=== PATIENT | female | born 1975 | race Caucasian/White ===

== ENCOUNTER 2016-05-19 08:52 | Emergency (ER) | payer OTHER ==
[~2016-05-19] VITALS: Ht 162.6 cm; Wt 68.2 kg
[2016-05-19 09:06] VITALS: Ht 162.6 cm; Wt 68.2 kg
[2016-05-19] MEDS ORDERED: ASPIRIN 325 MG TAB PO STA (09:16)
[2016-05-19] MEDS ORDERED: TAP5 PO (09:18)
[2016-05-19] MEDS ORDERED: FER325 PO (09:18)
[2016-05-19] MEDS ORDERED: NITROGLYCERIN (SL) 0.4 MG TAB SL PRN (09:30)
--- NOTE | 2016-05-19 09:46 | RADRPT ---
PROCEDURE: XR Chest. CLINICAL INDICATION: chest pain TECHNIQUE: Single frontal view of the chest was obtained COMPARISON: None FINDINGS: The heart and mediastinum are within normal limits. The lungs are clear. There is no pleural effusion or pneumothorax. RPTAT: AA IMPRESSION: No acute disease. .Gino Mcmanus MD, Date Time Electronically viewed and signed by .Gnio Mcmanus MD, on 05/19/2016 09:45 .S/
[2016-05-19 10:10] LABS: BASOPHILS % 0.7 % (0.0-2.0); EOSINOPHILS # 0.1 10^3/ul (0.0-0.5); EOSINOPHILS % 2.5 % (0.0-7.0); HEMATOCRIT 30.7 % (37.0-47.0); HEMOGLOBIN 9.6 g/dl (12.0-16.0); LYMPHOCYTES # 2.2 10^3/ul (0.8-2.9); LYMPHOCYTES % 37.5 % (15.0-51.0); MEAN CORPUSCULAR HEMOGLOBIN 21.1 pg (29.0-33.0); MEAN CORPUSCULAR HGB CONC 31.1 g/dl (32.0-37.0); MEAN PLATELET VOLUME 9.4 fl (7.4-10.4); MONOCYTE # 0.4 10^3/ul (0.3-0.9); NEUTROPHILS % 52.3 % (39.0-77.0); PLATELET COUNT 410 10^3/UL (140-440); RED BLOOD COUNT 4.52 10^6/ul (4.20-5.40); RED CELL DISTRIBUTION WIDTH 20.7 % (11.5-14.5); UNCORRECTED WBC 5.8 10^3/ul (4.8-10.8); WHITE BLOOD COUNT 5.8 10^3/ul (4.8-10.8)
[2016-05-19 10:13] LABS: INR 1.03; PROTIME 13.5 Sec (12.2-14.2); PT RATIO 1.1
[2016-05-19 10:14] LABS: PARTIAL THROMBOPLASTIN TIME 30.9 Sec (25.0-35.0)
[2016-05-19 10:21] LABS: CONDITION 1; LH ANALYZER COMMENTS 1
[2016-05-19] MEDS ORDERED: ASPIRIN 81 MG TAB PO ONE (10:30)
[2016-05-19 10:32] LABS: ALBUMIN 4.2 g/dl (3.3-4.9)
[2016-05-19 10:33] LABS: CHLORIDE 108 mmol/L (97-110); POTASSIUM 3.9 mmol/L (3.5-5.1); SODIUM 146 mmol/L (135-144)
[2016-05-19 10:35] LABS: ANION GAP 19 (8-16); ASPARTATE AMINO TRANSFERASE 23 IU/L (15-46); BILIRUBIN,INDIRECT 0.1 mg/dl (0-1.1); BILIRUBIN,TOTAL 0.1 mg/dl (0.2-1.3); CARBON DIOXIDE 23 mmol/L (21-31); CREATININE 0.48 mg/dl (0.44-1.00)
[2016-05-19 10:36] LABS: ALANINE AMINOTRANSFERASE 31 IU/L (13-69); ALBUMIN/GLOBULIN RATIO 1.23; ALKALINE PHOSPHATASE 80 IU/L (42-121); BLOOD UREA NITROGEN 10 mg/dl (7-20); CREATINE KINASE 60 IU/L (23-200); GLUCOSE 96 mg/dl (70-220); TOTAL PROTEIN 7.6 g/dl (6.1-8.1)
[2016-05-19 10:45] LABS: B-TYPE NATRIURETIC PEPTIDE 64 PG/ML (0-125); CK-MB 0.61 ng/ml (0.0-2.4)
[2016-05-19 10:50] LABS: TROPONIN-I < 0.012 ng/ml (0.00-0.12)
--- NOTE | 2016-05-19 11:13 | ERD ---
ER Documentation Chief Complaint Date/Time DATE: 05/19/16 TIME: 11:11 Chief Complaint CP since 05/18/2016, radiating to L arm HPI This is a 40-year-old female with no past medical history that presents to the emergency department complaining of a 3 day history of a productive cough low- grade fever and a bandlike headache. The patient indicates the cough and fever had improved over the past 24 hours however yesterday morning while at work she felt slightly lightheaded and dizzy and took her blood pressure. It was 85/60. She stated that she sat down and the dizziness had resolved. 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 She denies any shortness of breath at rest or exertion. She did state however that she was complaining of mild tenderness in her left calf but denied any back pain and no recent trauma to the left calf. She stated there is no swelling of her lower extremities. She did not take any antipyretics prior to arrival her analgesic medication. She states she has had a headache in the past roughly 1 month ago that was similar nature to this bandlike headache and states this is not the worst headache of her life and she also denies any neck pain. Yesterday after she left work around 3 PM, 21 hours prior to arrival, she stated she developed chest pain. She stated that chest pain was pleuritic and did radiate to her left shoulder but not to her left arm contrary to the triage note. She stated there was no associated symptoms of vomiting diaphoresis or nausea. The pain does radiate to her upper back. She states that the chest pain has become a dull achy chest discomfort and is exacerbated by movement of her left upper extremity and as stated above is worse when she coughs. She went to an urgent care clinic just prior to arrival and they immediately sent her to the emergency department to be further evaluated they had performed an EKG at the clinic that was a normal sinus rhythm. The patient has no history of coronary artery disease in her first-degree relatives. The patient does not smoke tobacco. The clinic had phoned 911 and EMS administered 162 mg of aspirin and 2 sprays of nitroglycerin which the patient stated did not improve her symptoms of chest discomfort ROS All systems reviewed and are negative except as per history of present illness. Medications Home Meds Reported Medications Ferrous Sulfate* (Ferrous Sulfate*) 325 Mg Tabec, 325 MG PO DAILY, TAB 05/19/16 Methimazole* (Methimazole*) 5 Mg Tablet, 5 MG PO DAILY, TAB 05/19/16 Allergies Allergies: Coded Allergies: Penicillins (Verified Allergy, Unknown, 05/19/16) PMhx/Soc History of Surgery: Yes (Broken nose repair ) Hx Miscellaneous Medical Probl: Yes (pt has hx of anemia, Thyroid ) Hx Alcohol Use: No Hx Substance Use: No Hx Tobacco Use: No Smoking Status: Never smoker Physical Exam Vitals Vital Signs Date Time Temp Pulse Resp B/P Pulse Ox O2 Delivery O2 Flow Rate FiO2 05/19/16 11:30 99.1 75 16 130/96 100 Room Air 05/19/16 09:06 98.1 70 16 154/88 100 Physical Exam Constitutional:Well-developed. Well-nourished. HEENT:Normocephalic. Atraumatic.Pupils were equal round reactive to light. Moist mucous membranes.No tonsillar exudates. Neck: No nuchal rigidity. No lymphadenopathy. No posterior cervical spine tenderness or step-offs. Respiratory: Not using accessory muscles of respiration.Lungs were clear to auscultation bilaterally. No rhonchi. No rales. No wheezing. Cardiovascular: Regular rate regular rhythm.No murmurs. No rubs were appreciated.S1, S2 normal. Distal pulses are palpable 2+ bilaterally. Reproducible left chest wall tenderness with no crepitus no ecchymosis no flail chest and the tenderness is exacerbated with horizontal movement and abduction of the left upper extremity. GI: Abdomen was soft. Nontender. Non Distended. No pulsatile abdominal masses or bruits. No rebound. No guarding. Bowel sounds were present and normal. Muscle skeletal: Full range of motion of both the upper and lower extremities bilaterally.Normal muscle tone.No assymetrical calf swelling. Tenderness in the left calf with negative Homans sign. No tenderness of the right calf. No acromioclavicular tenderness bilaterally. No decreased strength of the upper or lower extremities bilaterally. Skin: No petechia, no purpura. No lesions on the palms or the soles of the feet. No maculopapular rash. NEURO: Patient was alert, awake, orientated x3.No facial droop. Gait observed and normal with no ataxia.Speech had regular rate and rhythm. No focal neurological deficits. Result Diagram: 05/19/1692905/19/1630 Results 24 hrs Laboratory Tests Test 05/19/16 09:30 Activated Partial Thromboplast Time 30.9Sec Alanine Aminotransferase (ALT/SGPT) 31IU/L Albumin 4.2g/dl Albumin/Globulin Ratio 1.23 Alkaline Phosphatase 80IU/L Anion Gap 19 Aspartate Amino Transf (AST/SGOT) 23IU/L B-Type Natriuretic Peptide 64PG/ML Basophils # 0.010^3/ul Basophils % 0.7% Blood Morphology Comment Blood Urea Nitrogen 10mg/dl Calcium Level 9.0mg/dl Carbon Dioxide Level 23mmol/L Chloride Level 108mmol/L Creatine Kinase 60IU/L Creatine Kinase Index 1.0 Creatinine 0.48mg/dl Creatinine Kinase MB (Mass) 0.61ng/ml Direct Bilirubin 0.00mg/dl Eosinophils # 0.110^3/ul Eosinophils % 2.5% Globulin 3.40g/dl Glucose Level 96mg/dl Hematocrit 30.7% Hemoglobin 9.6g/dl INR International Normalized Ratio 1.03 Indirect Bilirubin 0.1mg/dl Lymphocytes # 2.210^3/ul Lymphocytes % 37.5% Mean Corpuscular Hemoglobin 21.1pg Mean Corpuscular Hemoglobin Concent 31.1g/dl Mean Corpuscular Volume 68.0fl Mean Platelet Volume 9.4fl Monocytes # 0.410^3/ul Monocytes % 7.0% Neutrophils # 3.010^3/ul Neutrophils % 52.3% Nucleated Red Blood Cells # 0.010^3/ul Nucleated Red Blood Cells % 0.0/100WBC Platelet Count 62314^3/UL Potassium Level 3.9mmol/L Prothrombin Time 13.5Sec Prothrombin Time Ratio 1.1 Red Blood Count 4.5210^6/ul Red Cell Distribution Width 20.7% Serum HCG, Qualitative NEGATIVE Sodium Level 146mmol/L Total Bilirubin 0.1mg/dl Total Protein 7.6g/dl Troponin I < 0.012ng/ml White Blood Count 5.810^3/ul Current Medications Medications (Trade) Dose Ordered Sig/Miranda Route PRN Reason Start Time Stop Time Status Last Admin Dose Admin Aspirin (Aspirin) 325 mg ONCE STAT PO 05/19/16 09:16 05/19/16 09:18 DC Nitroglycerin (Nitroglycerin (Sl Tab) 0.4 Mg) 1 tab Q5M UP TO 3 DOSES PRN SL CHEST PAIN 05/19/16 09:30 Aspirin (Aspirin) 162 mg ONCE ONCE PO 05/19/16 10:30 05/19/16 10:31 DC 05/19/16 10:22 IV Flush 10 ml 10 ml STK-MED ONCE .ROUTE 05/19/16 11:31 05/19/16 11:32 DC 05/19/16 12:16 Sodium Chloride 100 ml @ ud STK-MED ONCE .ROUTE 05/19/16 11:31 05/19/16 11:32 DC 05/19/16 12:16 Iohexol (Omnipaque) 100 ml @ ud STK-MED ONCE .ROUTE 05/19/16 11:31 05/19/16 11:32 DC 05/19/16 12:16 Iohexol (Omnipaque 350mg/ ml) 50 ml STK-MED ONCE .ROUTE 05/19/16 11:31 05/19/16 11:32 DC 05/19/16 12:16 Morphine Sulfate (morphine) 4 mg ONCE STAT IV 05/19/16 12:04 05/19/16 12:05 DC 05/19/16 12:27 Ondansetron HCl (Zofran Inj) 4 mg ONCE STAT IV 05/19/16 12:04 05/19/16 12:05 DC 05/19/16 12:26 Ketorolac Tromethamine 30 mg 30 mg ONCE STAT IV 05/19/16 12:04 05/19/16 12:05 DC 05/19/16 12:26 Sodium Chloride 100 ml @ ud STK-MED ONCE .ROUTE 05/19/16 12:04 05/19/16 12:05 DC 05/19/16 12:16 Iohexol (Omnipaque) 100 ml @ ud STK-MED ONCE .ROUTE 05/19/16 12:04 05/19/16 12:05 DC 05/19/16 12:16 Procedures/MDM The patient presented to the emergency department complaining of chest pain. My clinical evaluation and workup was to distinguish minor causes of chest pain from acute life threatening cardiopulmonary causes such as myocardial infarction , pulmonary embolism, aortic dissection, esophageal rupture, cardiac tamponade, The patient was placed on a gambling monitor, continuous pulse oximetry and IV access established by nursing staff. 12 Lead EKG tracing ordered and reviewed by myself showed: Normal sinus rhythm of 78 bpm and no arrhythmia. MS interval normal. QRS duration normal. No ST segment elevation No ST segment depression. No changes consistent with acute ischemia. The patient also presented to the emergency department with an acute single headache that presented within days of onset my differential diagnosis included but was not limited to meningitis, SAH, intracerebral hemorrhage, hypertensive encephalopathy, cranial artery dissection, cerebral venous sinus thrombosis, traumatic, acute sinusitis. The patient has no ocular symptoms to suggest temporal neuritis, acute narrow-angle glaucoma or pituitary apoplexy. The patient did not appear to have a toxic or metabolic etiology such as fever, hypoglycemia, high-altitude disease or carbon monoxide poisoning. This was not the patients worse headache of their life. The patient had a complete neurologic and fundoscopic exam performed by myself that was normal with no focal neurological deficits or retinal hemorrhage. The patient stated this headache was not severe or distinct from other headaches and the history with the physical exam findings did not likely suggest SAH. Therefore, I did not feel it was clinically necessary to perform a lumbar puncture and CSF analysis. The patient's headache improved with IV Toradol and morphine The patient had tenderness of the left calf and venous duplex ultrasound had been ordered and reviewed by myself and showed no evidence of deep vein thrombosis. The patient had no blunt or penetrating trauma or physical exam findings to suggest necrotizing fasciitis or overlying cellulitis. The patients chest pain was reproduced by palpation and horizontal flexion of the arms. There is no signs of ischemia on the 12-lead EKG tracing and cardiac enzymes were normal. It was my clinical impression that the pain was a result of inflammation of the skin and subcutaneous structures of the chest wall versus myocardial ischemia. I felt the patient had low-risk chest pain and could therefore be safely discharged with close follow-up. The patient however was offered admission for observation however the patient stated she would prefer to be discharged and follow-up with her own primary care physician. I had also obtained a CT scan of the chest given that the patient was stating that the chest discomfort started to radiate to her back and there was no evidence of an aortic dissection. However the study was limited for pulmonary embolism but my clinical suspicion was low for pulmonary embolism as the patient had a low pretest probability according to the well's criteria. The CT scan of the chest was read by the radiologist and reviewed by myself as well and indicated the followin. The study is limited for the evaluation of PE due to phase of the study. No pulmonary emboli in the main pulmonary arteries; however lobar and distal branches are not well assessed. Consider repeat CTA or VQ scan for further evaluation. 2. Enlarged pulmonary arteries suggestive of pulmonary hypertension. 3. No acute infiltrates. 4. Normal caliber thoracic aorta with no aortic dissection. Observation Note: Time: 4 hours Family Hx: No Hypertension Evaluation: Multiple exams showed improving symptoms and no evidence of myocardial ischemia or focal neurological deficits The patient again stated she felt comfortable being discharged home. Her pain and headache had improved after she received anti-inflammatories being Toradol and morphine for analgesic control. Therefore the patient was discharged home in fair condition. They were instructed to return to the emergency department at any time if there was any worsening of their condition. The patient stated they would follow up with their PCP in the next 24-48 hours to initiate a suitable medication regimen under the care of their PCP as well as to allow their PCP to monitor any drug reactions. The patient was discharged home with prescriptions after they gave informed consent to the new medication. They were also fully informed by myself on the adverse effects and adverse drug interactions in order to provide adequate safeguards to prevent possible adverse reactions to medications. Departure Diagnosis: Primary Impression: Tension headache Additional Impression: Acute costochondritis Condition: Fair KITTY FAJARDO May 19, 2016 11:13
[2016-05-19] MEDS ORDERED: IOHEXOL 350MG/ML 50 ML BTL ONE (11:31)
[2016-05-19] MEDS ORDERED: SOD CHLORIDE 0.9% 100 ML ONE ×2 (11:31→12:04)
[2016-05-19] MEDS ORDERED: IOHEXOL 100 ML ONE ×2 (11:31→12:04)
--- NOTE | 2016-05-19 11:57 | RADRPT ---
PROCEDURE: CT Head without. CLINICAL INDICATION: Posterior headache. TECHNIQUE: The study was performed utilizing a multi-slice, multidetector CT scanner. Direct spira l 1 mm axial sections were obtained through the head without the use of intravenous contrast materia l. Coronal and sagittal reformations were obtained. The images were reviewed on a PACS workstation. RADIATION DOSE: CTDIvol: 44.1 mGyDLP: 630.2 mGy-cm COMPARISON: No prior studies are available for comparison. FINDINGS: There is no intracranial hemorrhage, extra-axial fluid collection, mass lesion, midline shift or hyd rocephalus. The ventricles, sulci and cisterns are within normal limits. The white matter is unrem arkable. The nj-white matter differentiation is preserved. The basal cisterns are patent. The m idline structures are intact. The orbits, calvarium and extracranial soft tissues are normal in yasir earance. The visualized paranasal sinuses, mastoid air cells and middle ear cavities are normally ae rated. IMPRESSION: 1. No acute intracranial abnormality. No intracranial hemorrhage, extra-axial fluid collection, ma ss lesion or hydrocephalous. RPTAT: DD .Michael Fernandez MD, Date Time Electronically viewed and signed by .Michael Fernandez MD, on 05/19/2016 11:57 .S/
--- NOTE | 2016-05-19 11:58 | RADRPT ---
PROCEDURE: US Lower extremity Venous. CLINICAL INDICATION: Bilateral lower extremity swelling , shortness of breath TECHNIQUE: Multiple sonographic images of the bilateral lower extremity deep venous system was obt ained utilizing grayscale, color-flow, compressive sonography and doppler imaging with augmentation. The images were reviewed on a PACS workstation. COMPARISON: None. FINDINGS: There is normal compressibility and flow within the bilateral common femoral, superficial femoral , posterior tibial and popliteal veins. RPTAT: AA IMPRESSION: No sonographic evidence for deep venous thrombosis. .Gino Mcmanus MD, MD Date Time Electronically viewed and signed by .Gino Mcmanus MD, on 05/19/2016 11:57 .S/
[2016-05-19] MEDS ORDERED: KETOROLAC 30 MG INJ IV STA (12:04)
[2016-05-19] MEDS ORDERED: morphine 4 MG/ML VIAL IV STA (12:04)
[2016-05-19] MEDS ORDERED: ONDANSETRON 4 MG INJ IV STA (12:04)
--- NOTE | 2016-05-19 12:39 | RADRPT ---
PROCEDURE: CTA Chest and pulmonary angiogram. CLINICAL INDICATION: Chest pain and shortness of breath. TECHNIQUE: CT scan of the chest and CT pulmonary angiogram was performed on a multidetector high-r Zandoolution CT scanner. High-resolution thin slice coronal and sagittal imaging was obtained from the axial source images. 3-D volumetric rendered post processing was performed as well. The patient w as examined following the uncomplicated intravenous administration of 100 cc of Omnipaque-350. The i mages were reviewed on a PACS workstation. The total exam CTDI equals 16.90, 10.63, 4.69, and 8.84 a nd the total exam DLP equals 713.67 mGy-cm. One or more of the following dose reduction techniques were used: Automated exposure control. Adjustment of the mA and/or kV according to patient size. Use of iterative reconstruction technique. COMPARISON: No prior studies are available for comparison. FINDINGS: CT chest: The lungs are clear. No focal opacification, effusion, pneumothorax, edema, or nodules are seen. T he central tracheobronchial tree is clear. The mediastinum is unremarkable without evidence for mass or lymphadenopathy. The vascular structur es of the mediastinum are normal in course and caliber. The heart size is normal without pericardia l thickening or effusion. The axillary, subpectoral, and supraclavicular regions are unremarkable. Imaging obtained through the upper abdomen is equally unremarkable. The adrenal glands are symmetri higinio normal. The surrounding chest wall is unremarkable. The osseous structures are unremarkable CT pulmonary angiogram: There is no thrombus in the main pulmonary arteries. The distal branches are not adequately opacifi ed further evaluation. Pulmonary arteries are enlarged suggestive of pulmonary hypertension. IMPRESSION: 1. The study is limited for the evaluation of PE due to phase of the study. No pulmonary emboli in the main pulmonary arteries; however lobar and distal branches are not well assessed. Consider rep eat CTA or VQ scan for further evaluation. 2. Enlarged pulmonary arteries suggestive of pulmonary hypertension. 3. No acute infiltrates. 4. Normal caliber thoracic aorta with no aortic dissection. RPTAT: BB .Graeme Zelaya MD, MD Date Time Electronically viewed and signed by .Graeme Zelaya MD, on 05/19/2016 12:38 .O/
[2016-05-19 14:03] VITALS: BP 128/63; PULSE 70; RESP 16; TEMP 98.3
[2016-05-19] MEDS ORDERED: IBUP-1542 PO (14:10)
== END 2016-05-19 14:20 | disposition home or self-care (01) ==
LOC: E/R 08:52
DX: G44.209 Tension-type headache, unspecified, not intractable (principal); M94.0 Chondrocostal junction syndrome [Tietze]; R07.9 Chest pain, unspecified
CPT/HCPCS: 36415; 70450; 71010; 71275; 80053; 82550; 82553; 83880; 84484; 84703; 85025; 85610; 85730; 87400; 93005; 93970; 96374; 96375; J1885; J2270; J2405; Q9967; Z7502; Z7610